=== PATIENT | female | born 1995 | race American Indian/Alaskan Native ===

== ENCOUNTER 2020-08-19 04:19 | Emergency (ER) | payer SELFPAY ==
[2020-08-19] MEDS ORDERED: ACETAMINOPHEN 325 MG TAB PO ONE (04:45)
[2020-08-19] MEDS ORDERED: AMOXICILLIN/K CLAV 875/125MG TAB PO ONE (04:45)
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
[2020-08-19] MEDS ORDERED: DIPHtheria,PERTUSSIS(ACELL),TETANUS VACCINE/PF 0.5 ML VIAL IM ONE (05:01)
[2020-08-19 05:12] LABS: HCG Qualitative,Urine Negative (Negative)
[2020-08-19 05:18] LABS: Bacteria,Urine 3+ /HPF (Negative); Bilirubin,Urine NEG (Negative); Blood,Urine NEG (Negative); Color,Urine Yellow (Yellow); Mucus,Urine FEW /HPF; Urobilinogen,Urine < 2.0 mg/dL (<2.0)
[2020-08-19 05:22] VITALS: BP 131/77
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
== END 2020-08-19 06:17 | disposition home or self-care (01) ==
LOC: ED 04:19
DX: S01.01XA Laceration without foreign body of scalp, initial encounter (principal); S01.81XA Laceration without foreign body of other part of head, initial encounter; S01.85XA Open bite of other part of head, initial encounter; B37.3 Candidiasis of vulva and vagina; N39.0 Urinary tract infection, site not specified; Z79.899 Other long term (current) drug therapy; Y04.8XXA Assault by other bodily force, initial encounter; Y93.89 Activity, other specified; Y92.009 Unspecified place in unspecified non-institutional (private) residence as the place of occurrence of the external cause; Y99.8 Other external cause status
CPT/HCPCS: 70450; 70486; 72125; 81001; 81025; 87086; 90471; 90715